=== PATIENT | female | born 1965 | race Two or more races ===

== ENCOUNTER 2024-03-09 01:06 | Inpatient (IN) | payer OTHER ==
[~2024-03-09] VITALS: Ht 157.5 cm; Wt 73.2 kg
[2024-03-09] VITALS (13 sets, daily range): BP systolic 101–119; BP diastolic 59–79; PULSE 52–90; RESP 12–18; TEMP 97.9–98.8; O2SAT 93–100
--- NOTE | 2024-03-09 01:27 | ED.PDOC ---
History of Present Illness HPI Comments 58-year-old female with PMHx DM, HTN brought in by EMS presents with a chief complaint of chest pain, nausea, and vomiting. Patient states that she was sleeping when she got woken up by sharp, left sided chest pain. Patient mentions that the pain is localized to her left chest wall, radiates up her neck and down her left arm. Patient reports that she became nauseous and had a vomiting episode. Patient does mention that she was diaphoretic, however, patient is not diaphoretic on arrival. Patient was given 325mg ASA by EMS. EKG showed acute STEMI which was then sent to on-call STEMI provider, Dr. Vera, whom states that it is not a STEMI. Chief Complaint: Chest Pain Time Seen by MD: :17 Reviewed Notes: Medications, Allergies Information Source: Patient Mode of Arrival: EMS Severity: Moderate Timing: Minutes Duration: Since onset Prehospital treatment: ASA Past Medical History PAST MEDICAL HISTORY: DM, HTN Surgical History: Denies all surgeries ONCOLOGY PHYSICIAN ASSISTANT History: Denies all ONCOLOGY PHYSICIAN ASSISTANT Hx Family History Family History: Reviewed,noncontributory to illness Social History Smoker: Non-Smoker Alcohol: Denies ETOH Use Drugs: Denies Drug Use Lives In: Home Constitutional: denies: chills, diaphoresis, fatigue, fever, malaise, sweats, weakness, others EENTM: denies: blurred vision, double vision, ear bleeding, ear discharge, ear drainage, ear pain, ear ringing, eye pain, eye redness, hearing loss, mouth pain, mouth swelling, nasal discharge, nose bleeding, nose congestion, nose pain, photophobia, tearing, throat pain, throat swelling, voice changes, others Respiratory: denies: cough, hemoptysis, orthopnea, SOB at rest, shortness of breath, SOB with excertion, stridor, wheezing, others Cardiovascular: reports: chest pain; denies: dizzy spells, diaphoresis, Dyspnea on exertion, edema, irregular heart beat, left arm pain, lightheadedness, palpitations, PND, syncope, others Gastrointestinal: reports: nausea, vomiting; denies: abdomen distended, abdominal pain, blood streaked bowels, constipated, diarrhea, dysphagia, diffi culty swallowing, hematemesis, melena, poor appetite, poor fluid intake, rectal bleeding, rectal pain, others Genitourinary: denies: abnormal vagina bleeding, burning, dyspareunia, dysuria, flank pain, frequency, hematuria, incontinence, pain, , vagina discharge, urgency, others Neurological: denies: dizziness, fainting, headache, left sided numbness, left sided weakness, numbness, paresthesia, pre-existing deficit, right sided numbness, right sided weakness, seizure, speech problems, tingling, tremors, weakness, others Musculoskeletal: denies: back pain, gout, joint pain, joint swelling, muscle pain, muscle stiffness, neck pain, others Integumetry: denies: bruises, change in color, change in hair/nails, dryness, laceration, lesions, lumps, rash, wounds, others Allergic/Immunocompromised: denies: Difficulty Healing, Frequent Infections, Hives, Itching, others Hematologic/Lymphatic: denies: anemia, blood clots, easy bleeding, easy bruising, swollen glands, others Endocrine: denies: excessive hunger, excessive sweating, excessive thirst, excessive urination, flushing, intolerance to cold, intolerance to heat, unexplained weight gain, unexplained weight loss, others Psychiatric: denies: anxiety, bipolar disorder, depression, hopeless, panic disorder, schizophrenia, sleepless, suicidal, others All Other Systems: Reviewed and Negative Physical Exam General Appearance: No Apparent Distress, Normal HEENT: Normal ENT Inspection, Pharynx Normal, TMs Normal Neck: Full Range of Motion, Non-Tender, Normal, Normal Inspection Respiratory: Chest Non-Tender, Lungs Clear, No Accessory Muscle Use, No Resp iratory Distress, Normal Breath Sounds Cardiovascular: No Edema, No JVD, No Murmur, No Gallop, Normal Peripheral Pulses, Regular Rate/Rhythm Breast Exam: Deferred Gastrointestinal: No Organomegaly, Non Tender, No Pulsatile Mass, Normal Bowel Sounds, Soft Genitalia: Deferred Pelvic: Deferred Rectal: Deferred Extremities: No calf tenderness, Normal capillary refill, Normal inspection, Normal range of motion, Non-tender, No pedal edema Musculoskeletal : Apperance: Normal Neurologic: Alert, senior hardware design engineer II-XII nml as Tested, No Motor Deficits, Normal Affect, Normal Mood, No Sensory Deficits Cerebellar Function: Normal Reflexes: Normal Skin: Dry, Normal Color, Warm Lymphatic: No Adenopathy Was a procedure done? Was a procedure done?: No Differential Dx Considerations may include: ACS, NSTEMI, pneumonia, viral syndrome X-Ray, Labs, Meds, VS Vital Signs Date Time Temp Pulse Resp B/P (MAP) Pulse Ox O2 Delivery O2 Flow Rate FiO2 03/09/24 02:51 57 10 123/79 03/09/24 02:19 55 03/09/24 01:17 54 03/09/24 01:08 97.7 54 18 160/78 (105) 96 03/09/24 01:08 53 Lab Test 03/09/24 02:22 03/09/24 01:30 Range/Units Troponin I High Sensitivity 168 *H 168 *H </=34 ng/L White Blood Count 15.5 H 4.4-10.8 10^3/uL Red Blood Count 4.18 4.0-5.20 10^6/uL Hemoglobin 12.1 L 12.2-16.2 g/dL Hematocrit 37.1 36.0-46.0 % Mean Corpuscular Volume 88.9 80.0-100.0 fL Mean Corpuscular Hemoglobin 29.0 28.0-32.0 pg Mean Corpuscular Hemoglobin Concent 32.6 32.0-36.0 g/dL Red Cell Distribution Width 14.8 H 11.8-14.3 % Platelet Count 264 140-450 10^3/uL Mean Platelet Volume 8.5 6.9-10.8 fL Neutrophils (%) (Auto) 78.0 37.0-80.0 % Lymphocytes (%) (Auto) 16.0 10.0-50.0 % Monocytes (%) (Auto) 4.6 0.0-12.0 % Eosinophils (%) (Auto) 1.0 0.0-7.0 % Basophils (%) (Auto) 0.4 0.0-2.0 % Neutrophils # (Auto) 12.1 H 1.6-8.6 10 ^3/uL Lymphocytes # (Auto) 2.5 0.4-5.4 10 ^3/uL Monocytes # (Auto) 0.7 0-1.3 10 ^3/uL Eosinophils # (Auto) 0.2 0-0.8 10 ^3/uL Basophils # (Auto) 0.1 0-0.2 10 ^3/uL Nucleated Red Blood Cells 0.1 % Sodium Level 140 136-145 mmol/L Potassium Level 4.0 3.5-5.1 mmol/L Chloride Level 104 98-107 mmol/L Carbon Dioxide Level 27 20-31 mmol/L Anion Gap 9 5-15 Blood Urea Nitrogen 21 9-23 mg/dL Creatinine 1.25 H 0.550-1.02 mg/dL Glomerular Filtration Rate Calc 50 >90 mL/min BUN/Creatinine Ratio 16.8 10.0-20.0 Serum Glucose 231 H 74-106 mg/dL Calcium Level 10.5 H 8.7-10.4 mg/dL B-Type Natriuretic Peptide 10.40 0-100 pg/mL Current Medications Medications (Trade) Dose Ordered Sig/Betty Route Start Time Stop Time Status Last Admin Ondansetron HCl (Zofran) 4 mg ONCE ONCE IV 03/09/24 02:45 03/09/24 02:46 DC 03/09/24 02:51 Morphine Sulfate 4 mg ONCE ONCE IV 03/09/24 02:45 03/09/24 02:46 DC 03/09/24 02:51 Time of 1ST Reevaluation: 01:47 Reevaluation 1ST: Unchanged Patient Education/Counseling: Diagnosis, Treatment, Prognosis Family Education/Counseling: No Family Present Departure 1 Departure Time of Disposition: 03:38 ([place] Authorization [id number] to admit here. Patient presented with chest pain that was concerning for possible STEMI, ACS, PE, Pneumonia, Muscle Strain, COPD, Dissection. Data: 1. I ordered and reviewed the result of at least 3 labs including a CBC, BMP, and Troponin. 2. I independently interpreted the following tests: EKG which shows mild elevations in 2 and 3 and Chest X-ray which shows benign chest.Risk:This patient has a high risk of morbidity due to further diagnostic testing or treatment and may suffer from an acute cardiac or respiratory disorder. Workup reveals concern for NSTEMI and patient should be admitted for further workup and possible expert consultation. ) Impression: Primary Impression: NSTEMI (non-ST elevated myocardial infarction) Additional Impression: Acute chest pain Disposition: 09 ADMITTED INPATIENT Admit to: Tele Condition: Serious Critical Care Note Critical Care Time?: Yes Critical care comment: Acute chest pain Authorized and Performed by: Jose Armando Jones MD Total critical care time: Approximately 36 minutes Due to a high probability of clinically significant, life threatening deterioration, the patient required my highest level of preparedness to intervene emergently and I personally spent this critical care time directly and personally managing the patient. This critical care time included obtaining a history; examining the patient; pulse oximetry; ordering and review of studies; arranging urgent treatment with development of a management plan; evaluation of patient's response to treatment; frequent reassessment; and, discussions with other providers. This critical care time was performed to assess and manage the high probability of imminent, life-threatening deterioration that could result in multi-organ failure. It was exclusive of separately billable procedures and treating other patients and teaching time. Please see my other sections and the rest of the note for further information on patient assessment and treatment. Stability Stability form required: No Heart Score Heart Score: Heart Score Response (Comments) Value History Moderate Suspicious 1 EKG Repolarization Disturb 1 Age 45-64 1 Risk Factors >3 or Hx ASHD 2 Troponin >3 x's Normal limit 2 Total 7 I personally scribed for JOSE ARMANDO JONES MD ([email or web address]) on 03/09/24 at 01:27. Electronically submitted by Juice Bernard ([email or web address]). JOSE ARMANDO JONES MD Mar 09, 2024 01:27
[2024-03-09 01:55] LABS: Basophils # (auto) 0.1 10 ^3/uL (0-0.2); Basophils % (auto) 0.4 % (0.0-2.0); Eosinophils # (auto) 0.2 10 ^3/uL (0-0.8); Hematocrit 37.1 % (36.0-46.0); Hemoglobin 12.1 g/dL (12.2-16.2); Lymphocytes # (auto) 2.5 10 ^3/uL (0.4-5.4); Mean Corpuscular Hgb Conc. 32.6 g/dL (32.0-36.0); Mean Corpuscular Volume 88.9 fL (80.0-100.0); Monocytes # (auto) 0.7 10 ^3/uL (0-1.3); Monocytes % (auto) 4.6 % (0.0-12.0); Neutrophils # (auto) 12.1 10 ^3/uL (1.6-8.6); Nucleated Red Blood Cells % 0.1 %; Platelet Count (auto) 264 10^3/uL (140-450); Red Blood Cells 4.18 10^6/uL (4.0-5.20); Red Cell Distribution Width 14.8 % (11.8-14.3); White Blood Cell 15.5 10^3/uL (4.4-10.8)
--- NOTE | 2024-03-09 02:39 | ECG ---
[facility] Test Date: 2024-03-09 Test Time: 01:17:03 Pat Name: ANTWON ZUNIGA Department: ED Room: Gender: F Director Of Strategic Initiatives: KENNEDI : 1965 Requested By: JOSE ARMANDO CARDONA Order Number: [id number] Reading MD: Measurements Intervals [place] Rate: 54 P: 55 MO: 126 QRS: 29 QRSD: 87 T: 88 QT: 427 QTc: 405 Interpretive Statements Sinus rhythm Inferior infarct, acute (RCA) Probable RV involvement, suggest recording right precordial leads Baseline wander in lead(s) V5 Please click the below link to view image of tracing.
--- NOTE | 2024-03-09 02:39 | ECG ---
[facility] Test Date: 2024-03-09 Test Time: 01:08:51 Pat Name: ANTWON ZUNIGA Department: ED Room: Gender: F Talent Acquisition Operations Manager: raisa : 1965 Requested By: JOSE ARMANDO CARDONA Order Number: [id number] Reading MD: Measurements Intervals [place] Rate: 53 P: 53 NE: 124 QRS: 30 QRSD: 90 T: 85 QT: 434 QTc: 408 Interpretive Statements Sinus rhythm Inferior infarct, acute (RCA) Probable RV involvement, suggest recording right precordial leads Please click the below link to view image of tracing.
--- NOTE | 2024-03-09 02:39 | ECG ---
[facility] Test Date: 2024-03-09 Test Time: 02:19:57 Pat Name: ANTWON ZUNIGA Department: ED Room: Gender: F Clay Modeler: KENNEDI : 1965 Requested By: JOSE ARMANDO CARDONA Order Number: [id number] Reading MD: Measurements Intervals [place] Rate: 55 P: 53 SC: 127 QRS: 44 QRSD: 88 T: 94 QT: 427 QTc: 409 Interpretive Statements Sinus rhythm Inferior infarct, acute (RCA) Minimal ST elevation, anterior leads Lateral leads are also involved Probable RV involvement, suggest recording right precordial leads Baseline wander in lead(s) V6 Please click the below link to view image of tracing.
[2024-03-09 02:43] LABS: Chloride 104 mmol/L (98-107); Sodium 140 mmol/L (136-145)
[2024-03-09 02:44] LABS: Anion Gap 9 (5-15); Carbon Dioxide 27 mmol/L (20-31)
[2024-03-09] MEDS: ONDANSETRON HCL 4 MG/2 ML VIAL IV ONE (02:51)
[2024-03-09] MEDS: MORPHINE SULFATE 4 MG/ML SYR/VIAL IV ONE (02:51)
--- NOTE | 2024-03-09 02:54 | DVH ---
Examination: CXRP Clinical Indication: chest pain Comparison: None. Technique: Frontal radiograph of the chest was obtained. Findings: Lungs are clear and well expanded, with no pulmonary infiltrate or pleural effusion. There is no pneumothorax. The cardiomediastinal silhouette is within normal limits. No acute osseous abnormality is seen. Impression: No acute cardiopulmonary disease is seen. Electronically Signed 03/09/2024 02:53 Juan Rojo
[2024-03-09 02:59] LABS: Calcium 10.5 mg/dL (8.7-10.4); Glucose 231 mg/dL (74-106)
[2024-03-09 03:19] LABS: BUN/Creatinine Ratio 16.8 (10.0-20.0); Blood Urea Nitrogen 21 mg/dL (9-23)
[2024-03-09] MEDS ORDERED: DEXTROSE (50%) 50ML SYRG IV PRN (04:15)
[2024-03-09] MEDS ORDERED: NITROGLYCERIN 0.4 MG SL TAB SL PRN (04:15)
--- NOTE | 2024-03-09 04:32 | DVHHP2 ---
History of Present Illness Reason for Visit: Chest pain History of Present Illness 58-year-old female presents for evaluation of chest pain. Patient reports being awakened with a left-sided sharp chest pain. She states the pain radiates to her neck down her left arm. Patient reports nausea with an episode of emesis. Denies any other acute complaints at the moment. Past Medical History Hypertension, diabetes mellitus Past Surgical History Denies Family History Noncontributory Smoke: No ALCOHOL: none Drugs: None Lives: with Family Review of Systems Review of Systems Review of systems are currently negative otherwise addressed in HPI. Medications Current Medications Medications Dose Ordered Sig/Betty Route Start Time Stop Time Status Last Admin Dose Admin Heparin Sodium/ Dextrose 250 ml @ 7.908 mls/ hr Q24H IV 03/09/24 03:45 UNV Atorvastatin Calcium 20 mg HS PO 03/09/24 22:00 UNV Lisinopril 20 mg DAILY PO 03/09/24 10:00 UNV Hydrochlorothiazide 25 mg DAILY PO 03/09/24 10:00 UNV Sertraline HCl 50 mg DAILY PO 03/09/24 10:00 UNV Aspirin 162 mg DAILY PO 03/09/24 10:00 UNV Atorvastatin Calcium 10 mg HS PO 03/09/24 22:00 UNV Ondansetron HCl 4 mg Q4HP PRN IV 03/09/24 04:15 UNV Nitroglycerin 0.4 mg Q5MINP PRN SL 03/09/24 04:15 UNV Morphine Sulfate 2 mg Q30M PRN IV 03/09/24 04:15 UNV Diagnostic Test (Pha) 1 strip Q6HR 03/09/24 06:00 UNV Insulin Human Regular Q6HR SC 03/09/24 06:00 UNV Dextrose 50 ml UD PRN IV 03/09/24 04:15 UNV Exam Vital Signs Vital Signs Date Time Temp Pulse Resp B/P (MAP) Pulse Ox O2 Delivery O2 Flow Rate FiO2 03/09/24 04:13 60 03/09/24 04:00 11 141/76 (97) 96 03/09/24 01:40 98.0 98.0 03/09/24 01:35 Room Air* 0 21 Exam Gen: 58-year-old female in mild distress Skin: Warm, dry, normal color and texture, no rash. HEENT: Normocephalic atraumatic, mucous membranes moist and pink. Neck: Cervical and supraclavicular nodes normal without enlargement, trachea is midline, thyroid gland is normal without masses. Pulmonary: Clear to auscultation and percussion bilaterally. Cardiac: Regular rate and rhythm. No murmur Abdomen: Soft, nontender, nondistended, bowel sounds present all 4 quadrants, no guarding, no rigidity, no organomegaly. Extremities: No cyanosis, clubbing, no edema Neuro: Cranial nerves II through XII grossly intact, normal affect and speech, no focal motor deficits. Labs/Xrays ORDERING PHYSICIAN: JOSE ARMANDO CARDONA MD PROCEDURE(s): CXRP - CHEST PORTABLE REASON: chest pain ORDER NUMBER(s): [id number], ACCESSION NUMBER(s): [id number] Examination: CXRP Clinical Indication: chest pain Comparison: None. Technique: Frontal radiograph of the chest was obtained. Findings: Lungs are clear and well expanded, with no pulmonary infiltrate or pleural effusion. There is no pneumothorax. The cardiomediastinal silhouette is within normal limits. No acute osseous abnormality is seen. Impression: No acute cardiopulmonary disease is seen. Electronically Signed 03/09/2024 02:53 Juan Rojo ATED BY: MARIANELA ARAUZ MD DICTATED DATE/TIME: 03/09/24 0253 Labs Test 03/09/24 04:01 03/09/24 01:30 Range/Units Eosinophils (%) (Auto) 1.0 0.0-7.0 % Eosinophils # (Auto) 0.2 0-0.8 10 ^3/uL Basophils # (Auto) 0.1 0-0.2 10 ^3/uL Nucleated Red Blood Cells 0.1 % Sodium Level 140 136-145 mmol/L Potassium Level 4.0 3.5-5.1 mmol/L Chloride Level 104 98-107 mmol/L Carbon Dioxide Level 27 20-31 mmol/L Anion Gap 9 5-15 Blood Urea Nitrogen 21 9-23 mg/dL Creatinine 1.25 H 0.550-1.02 mg/dL Glomerular Filtration Rate Calc 50 >90 mL/min BUN/Creatinine Ratio 16.8 10.0-20.0 Serum Glucose 231 H 74-106 mg/dL Calcium Level 10.5 H 8.7-10.4 mg/dL B-Type Natriuretic Peptide 10.40 0-100 pg/mL Assessment/Plan Assessment/Plan Assessment NSTEMI Hypertension Diabetes mellitus Plan Admit the patient to telemetry to the hospitalist Continue heparin drip per ER provider ACS protocol Resume home medications Continue treatment per orders. Plan discussed with: Patient My Orders Orders - SALVADOR,MANUEL AGACNJosafat Procedure Category Date Status Time * Cardiology Consult CONS 03/09/24 Transmitted 04:04 Atorvastatin (Lipitor) [facility] 03/09/24 Logged 22:[address] [facility] 03/09/24 Logged (Zestril Tablet) 10:[address] [facility] 03/09/24 Logged Tablet (Hydrochlorot 10:[address] [facility] 03/09/24 Logged (Zoloft) 10:[address] [facility] 03/09/24 Logged 10:00 Atorvastatin (Lipitor) [facility] 03/09/24 Logged 22:00 Basic Metabolic Panel LAB 03/10/24 Verified 04:00 Admit ADMIT 03/09/24 Transmitted 04:[address] [facility] 03/09/24 Logged (Zofran) 04:15 Npo (Nothing By DIET 03/09/24 Transmitted Mouth) Diet Breakfast Echo 2d Mode Cardiac US 03/09/24 Logged DOP 04:04 Condition: Fair [facility] 03/09/24 In Process 04:04 Bedrest With Bathroom [facility] 03/09/24 In Process Privileg 04:[address] [facility] 03/09/24 Logged Sublingual (Ntrostat 04:[address] [facility] 03/09/24 Logged Injection 04:15 Notify Of Changes [facility] 03/09/24 In Process From Base 04:04 Art Sales Consultant For [facility] 03/09/24 In Process 24 Hours 04:04 Emergency Dysrhythmia [facility] 03/09/24 In Process Protocol 04:04 Rhythm Strips Once [facility] 03/09/24 In Process Every Shift 04:04 Oxygen By Nasal RT 03/09/24 Transmitted Cannula 04:[address] [facility] 03/09/24 Logged (Accu-Chek Comfort 06:00 Insulin R (Human) [facility] 03/09/24 Logged (Insulin R) 06:00 Dextrose 50% Syringe [facility] 03/09/24 Logged 04:15 Date of Service: Mar 09, 2024 Billing Provider: JOAN SALVADOR Common Visit Codes: [id number] INP/OBS CARE (HIGH) OJAN SALVADOR Mar 09, 2024 04:32
[2024-03-09 04:35] LABS: Basophils # (auto) 0 10 ^3/uL (0-0.2); Basophils % (auto) 0.2 % (0.0-2.0); Eosinophils # (auto) 0 10 ^3/uL (0-0.8); Eosinophils % (auto) 0.3 % (0.0-7.0); Hematocrit 36.9 % (36.0-46.0); Lymphocytes # (auto) 1.3 10 ^3/uL (0.4-5.4); Lymphocytes % (auto) 11.1 % (10.0-50.0); Mean Corpuscular Hemoglobin 28.9 pg (28.0-32.0); Mean Corpuscular Hgb Conc. 32.6 g/dL (32.0-36.0); Mean Corpuscular Volume 88.6 fL (80.0-100.0); Monocytes # (auto) 0.3 10 ^3/uL (0-1.3); Monocytes % (auto) 2.3 % (0.0-12.0); Neutrophils # (auto) 10.4 10 ^3/uL (1.6-8.6); Neutrophils % (auto) 86.1 % (37.0-80.0); Platelet Count (auto) 231 10^3/uL (140-450); Red Blood Cells 4.16 10^6/uL (4.0-5.20); Red Cell Distribution Width 15.1 % (11.8-14.3); White Blood Cell 12.1 10^3/uL (4.4-10.8)
[2024-03-09 04:50] LABS: Partial Thromboplastin Time 24.5 SEC (24.5-34.5); Prothrombin Time 10.6 sec (9.3-11.8)
[2024-03-09] MEDS: HEPARIN DRIP/D5W 100UNITS/ML 250 ML IV SCH (05:49)
[2024-03-09] MEDS: HEPARIN SODIUM (PORCINE) 5000 UNITS/ML 1ML VIAL IV ONE ×2 (05:50→06:06)
--- NOTE | 2024-03-09 05:57 | DVHINCON2 ---
Date of service: Mar 09, 2024 History of Present Illness 58 yo F with DM , HTN admitted for chest pain and nstemi. initial ecg showed subtle st changes inferiorly. plt has no hx of cad or chf. chest pain improved since coming in. for 1 week, " i felt bad". pt at bedside wit family. Past Medical History reviewed Allergies: Coded Allergies: NO KNOWN ALLERGIES (Unverified , 03/09/24) Current Medications Current Medications Medications (Trade) Dose Ordered Sig/Betty Route PRN Reason Start Time Stop Time Status Last Admin Heparin Sodium/ Dextrose 250 ml @ 8 mls/hr Q24H IV 03/09/24 03:45 Atorvastatin Calcium (Lipitor) 20 mg HS PO 03/09/24 22:00 Lisinopril (Zestril Tablet) 20 mg DAILY PO 03/09/24 10:00 Hydrochlorothiazide (hydroCHLOROthiazide TABLET) 25 mg DAILY PO 03/09/24 10:00 Sertraline HCl (Zoloft) 50 mg DAILY PO 03/09/24 10:00 Aspirin 162 mg DAILY PO 03/09/24 10:00 Atorvastatin Calcium (Lipitor) 10 mg HS PO 03/09/24 22:00 03/09/24 05:05 DC Ondansetron HCl (Zofran) 4 mg Q4HP PRN IV NAUSEA / VOMITING 03/09/24 04:15 Nitroglycerin (Ntrostat Sublingual) 0.4 mg Q5MINP PRN SL FOR CHEST PAIN 03/09/24 04:15 Morphine Sulfate 2 mg Q30M PRN IV FOR CHEST PAIN 03/09/24 04:15 Diagnostic Test (Pha) (Accu-Chek Comfort Curve T) 1 strip Q6HR 03/09/24 06:00 Insulin Human Regular (InsuLIN R) Q6HR SC 03/09/24 06:00 Dextrose 50 ml UD PRN IV Blood Sugar LESS THAN 60 03/09/24 04:15 Review of Systems 10 pt ros otherwise negative Vital Signs Vital Signs Date Time Temp Pulse Resp B/P (MAP) Pulse Ox O2 Delivery O2 Flow Rate FiO2 03/09/24 04:13 60 03/09/24 04:00 11 141/76 (97) 96 03/09/24 01:40 98.0 98.0 03/09/24 01:35 Room Air* 0 21 Physical Exam mild distress s1 s2 rrr ctab soft nt/nd no edema Labs/Diagnostic Data Labs Test 03/09/24 04:01 03/09/24 01:30 Range/Units White Blood Count 12.1 H 4.4-10.8 10^3/uL Red Blood Count 4.16 4.0-5.20 10^6/uL Hemoglobin 12.0 L 12.2-16.2 g/dL Hematocrit 36.9 36.0-46.0 % Mean Corpuscular Volume 88.6 80.0-100.0 fL Mean Corpuscular Hemoglobin 28.9 28.0-32.0 pg Mean Corpuscular Hemoglobin Concent 32.6 32.0-36.0 g/dL Red Cell Distribution Width 15.1 H 11.8-14.3 % Platelet Count 231 140-450 10^3/uL Mean Platelet Volume 8.3 6.9-10.8 fL Neutrophils (%) (Auto) 86.1 H 37.0-80.0 % Lymphocytes (%) (Auto) 11.1 10.0-50.0 % Monocytes (%) (Auto) 2.3 0.0-12.0 % Eosinophils (%) (Auto) 0.3 0.0-7.0 % Basophils (%) (Auto) 0.2 0.0-2.0 % Neutrophils # (Auto) 10.4 H 1.6-8.6 10 ^3/uL Lymphocytes # (Auto) 1.3 0.4-5.4 10 ^3/uL Monocytes # (Auto) 0.3 0-1.3 10 ^3/uL Eosinophils # (Auto) 0 0-0.8 10 ^3/uL Basophils # (Auto) 0 0-0.2 10 ^3/uL Nucleated Red Blood Cells 0.0 % Prothrombin Time 10.6 9.3-11.8 sec Prothrombin Time INR 1.00 0.9-1.15 Activated Partial Thromboplast Time 24.5 24.5-34.5 SEC Troponin I High Sensitivity 196 *H </=34 ng/L Sodium Level 140 136-145 mmol/L Potassium Level 4.0 3.5-5.1 mmol/L Chloride Level 104 98-107 mmol/L Carbon Dioxide Level 27 20-31 mmol/L Anion Gap 9 5-15 Blood Urea Nitrogen 21 9-23 mg/dL Creatinine 1.25 H 0.550-1.02 mg/dL Glomerular Filtration Rate Calc 50 >90 mL/min BUN/Creatinine Ratio 16.8 10.0-20.0 Serum Glucose 231 H 74-106 mg/dL Calcium Level 10.5 H 8.7-10.4 mg/dL B-Type Natriuretic Peptide 10.40 0-100 pg/mL Assessment nstemi htn hl DM Plan/Recommendation recommend LHC after informed consent pt agrees to plan evolving ecg pattern and recommend echo and heparin bolus troponin mildy elevated asa statin further recs to follow 40 mins critical care time spent Plan discussed with: Patient LOCO VALENCIA MD Mar 09, 2024 05:57
[2024-03-09] MEDS: InsuLIN REG 1unit/0.01ml Soln (100units/ml) SC SCH (06:00)
[2024-03-09] MEDS: ACCU-CHEK COMFORT CURVE STRIP VI SCH (06:13)
--- NOTE | 2024-03-09 06:52 | ECG ---
[facility] Test Date: 2024-03-09 Test Time: 04:13:46 Pat Name: ANTWON ZUNIGA Department: ED Room: [address] [place] [address] Gender: F Flyer Builder: KENNEDI : 1965 Requested By: JOSE ARMANDO CARDONA Order Number: [id number] Reading MD: Measurements Intervals [place] Rate: 60 P: 39 [place]: 127 QRS: 42 QRSD: 87 T: 95 QT: 409 QTc: 409 Interpretive Statements Sinus rhythm Inferior infarct, acute (RCA) Lateral leads are also involved Probable RV involvement, suggest recording right precordial leads Please click the below link to view image of tracing.
[2024-03-09] MEDS: ONDANSETRON HCL 4 MG/2 ML VIAL IV PRN (07:53)
[2024-03-09] MEDS: MORPHINE SULFATE INJ 2 MG/ml SYRG IV PRN (07:54)
[2024-03-09] MEDS: SERTRALINE HCL 50 MG TAB PO SCH (10:15)
[2024-03-09] MEDS: LISINOPRIL 20 MG TAB PO SCH (10:15)
[2024-03-09] MEDS: hydroCHLOROthiazide 25 MG TAB PO SCH (10:15)
[2024-03-09] MEDS: ASPirin 81 mg TAB PO SCH (10:16)
--- NOTE | 2024-03-09 10:22 | DVHSR ---
APPROVED REPORT EXAM: Two-dimensional and M-mode echocardiogram with Doppler and color Doppler. Blood Pressure: 139/78 mmHg INDICATION Chest Pain RISK FACTORS Height: 62, Weight: 145 DIMENSIONS LVDd4.7 (3.8-5.7cm)LA (2D)4.1 (1.9-4.0cm)Aortic Root3.0 (2.0-3.7cm) LVDs3.1 (2.5-4.0cm)LA (MM) (1.9-4.0cm)Aortic Cusp Exc1.6 (1.5-2.0cm) EF (%) 63.0 (55-70%)Rt. Atrium3.7 (1.9-4.0cm)Asc. Aorta cm IVSd1.3 (0.7-1.1cm)RV (D) (1.8-2.4cm) PWd1.2 (0.7-1.1cm) Mitral Valve MitralMitral Stenosis E wave0.89m/sMV Mean GR.2mmHg A wave0.93m/sMV Peak GR.141mmHg E/A ratio1.02D MVAcm2 DECEL [id number] 1/2 [id number] IVRTmsDop MVA2.09cm2 Aortic Valve Aortic ValveAortic Stenosis V10.90m/Evan Mean GR.5mmHg V21.57m/Evan Peak GR.10mmHg LVOT Diameter2.0 (1.8-2.4cm)Doppler AVA1.80cm2 Pulmonic Valve V20.73m/s Tricuspid Valve TR Velocity2.54m/s [id number] Conclusion lvef 60% by visual estimate normal rv function moderate mitral regurg left atrium enlarged
[2024-03-09] MEDS: fentaNYL CITRATE 100 MCG/2 ML VL ONE (11:37)
[2024-03-09] MEDS: ANGIOMAX 250 MG VIAL IV ONE (11:37)
[2024-03-09] MEDS: LIDOCAINE 2%HCL (LOCAL ANESTH.) INJ 20ML MDV ONE (11:37)
[2024-03-09] MEDS: VERAPAMIL 2.5MG/ML INJ 2ML VIAL IV ONE (11:37)
[2024-03-09] MEDS: HEPARIN SODIUM (PORCINE) 5000 UNITS/ML 1ML VIAL ONE (11:37)
[2024-03-09] MEDS: MIDAZOLAM HCL 2MG/2ML 2ml VIAL (1mg/ml) ONE (11:37)
[2024-03-09] MEDS: SODIUM CHL 0.9% 50 ML ONE (11:37)
--- NOTE | 2024-03-09 11:46 | DVHPN2 ---
Progress Note Date Seen: Mar 09, 2024 Medical Necessity Reason Pt with a Central, PICC or Fol: No Subjective Patient reports: No new complaints Review of Systems: HEENT:Normal, CVS:Normal, RESPIRATORY:Normal, GI:Normal, :Normal, MSK:Normal, NEURO:Normal Objective vital signs Vital Sign Date Time Temp Pulse Resp B/P (MAP) Pulse Ox O2 Delivery O2 Flow Rate FiO2 03/09/24 10:15 108/60 03/09/24 10:02 98.3 53 16 94 98.3 03/09/24 07:40 Room Air* 0 21 medications Current Medications Medications Dose Ordered Sig/Betty Route Start Time Stop Time Status Last Admin Dose Admin Heparin Sodium/ Dextrose 250 ml @ 8 mls/hr Q24H IV 03/09/24 03:45 Atorvastatin Calcium 20 mg HS PO 03/09/24 22:00 Lisinopril 20 mg DAILY PO 03/09/24 10:00 03/09/24 10:15 20 MG Hydrochlorothiazide 25 mg DAILY PO 03/09/24 10:00 03/09/24 10:15 25 MG Sertraline HCl 50 mg DAILY PO 03/09/24 10:00 03/09/24 10:15 50 MG Aspirin 162 mg DAILY PO 03/09/24 10:00 03/09/24 10:16 162 MG Ondansetron HCl 4 mg Q4HP PRN IV 03/09/24 04:15 03/09/24 07:53 4 MG Nitroglycerin 0.4 mg Q5MINP PRN SL 03/09/24 04:15 Morphine Sulfate 2 mg Q30M PRN IV 03/09/24 04:15 03/09/24 09:17 2 MG Diagnostic Test (Pha) 1 strip Q6HR 03/09/24 06:00 03/09/24 06:13 1 STRIP Insulin Human Regular Q6HR SC 03/09/24 06:00 Dextrose 50 ml UD PRN IV 03/09/24 04:15 Examination: GENERAL:Normal, HEENT:Normal, NECK:Normal, LUNGS:Normal, CVS:Normal, ABDOMEN:Normal, MSK:Normal, SKIN:Normal, NEURO:Normal, :Normal laboratory and microbiology Laboratory Tests 03/09/24 04:01 03/09/24 01:30 Test 03/09/24 01:30 Range/Units Serum Glucose 231 H 74-106 mg/dL Problem List/Assessment/Plan Problem List/Assessment/Plan #1 acute mi: c angio, heparin drip #2 dm: ssi #3 htn #4 depression #5 ?acute renal failure/vasomotor nephropathy- dc lisinopril, monitor Plan discussed with: Patient Critical Care Time (mins): 37 (critical care time 37 mins) Date of Service: Mar 09, 2024 Billing Provider: JOAN SILVA MD Common Visit Codes: [id number] CARE 30-74 MIN JOAN SILVA MD Mar 09, 2024 11:46
[2024-03-09] MEDS: PANTOPRAZOLE 40 MG/10 ML VIAL INJ IV ONE (12:15)
[2024-03-09] MEDS: ATROPINE SULF 1 MG/10ml SYR ONE (12:38)
[2024-03-09] MEDS: EPTIFIBATIDE INJ (2MG/ML) 10ML VIAL IV ONE ×2 (12:38→12:39)
[2024-03-09] MEDS: TICAGRELOR 90 MG TAB ONE (12:38)
--- NOTE | 2024-03-09 12:55 | DVHOP2 ---
Operative Report Operative Report CARDIAC SALES REPRESENTATIVE PRINTING PROCEDURE REPORT [place], [place] Date of Service: 03/09/24 Reading Specialist: Chris Valencia MD PROCEDURES PERFORMED: Coronary angiogram, left heart catheterization, conscious sedation administration and supervision, less than 15 minutes; fluoroscopy use and interpretation. conscious sedation 15-30 mins, ptca 1 vessel, pci 1 vessel, acute [place] intervention PREOPERATIVE DIAGNOSES: nstemi POSTOP DIAGNOSIS: nstemi DESCRIPTION OF PROCEDURE: The patient or appropriate family signed informed consent understanding the risks, benefits and alternatives of the procedure, they wished to proceed. The patient was brought to the cardiac solder making laborer in n.p.o. state. The patient was prepped in a sterile fashion. Sedation was used per cardiac cath protocol. I administered 2 mL of 2% lidocaine to the right wrist. With an antegrade front wall puncture. I cannulated the right radial artery and placed a 6-[place] slender. Next, an intra-arterial spasmolytic was administered. Next, a - 5 [place] catheter and XB 3.5 guide and were used for coronary angiogram and LVEDP measurement and pressure pullback. At the completion of procedure, all guides and wires were removed, and there were no immediate complications. FINDINGS: RCA: small non dominant vessel off the right sinus of Valsalva, there is no severe flow limiting stenosis. LEFT MAIN: Moderate size left main, it bifurcates into LAD and circumflex. no severe stenosis CIRCUMFLEX: Moderate caliber vessel coming off the left main. prox is patent. it gives off large OM1 that is stumped off with pernell 0 flow and very large thrombus burden. LAD: LAD is a moderate caliber vessel coming of the left main. no severe stenosis. microvascular disease and sluggish flow noted. INTERVENTION: We decided to proceed with coronary intervention. I started with a 6F ___xb 3.5_ Guide to intubate the _LM _. Angiomax bolus and gtt was started. Following this, I decided to wire using an .014 whispr across the culprit lesion with ease. At this time, we performed balloon angioplasty with a 3.0 x 13 mm balloon b__10 _ ATMS over __15__ seconds with _2__ number of inflations. Following this, I decided to place a stent using a ____3.5 x 18 mm GIL mm onyx____ stent inflated up to __18___ ATMS over 15 seconds with two separate inflations. Following this, the stent balloon removed and angio performed showing 0% residual stenosis. i gave intracoronary nitro 400 mcg (200 mcg 2 separate times over 10 mins and dose of IC integrilin given huge thrombus burden. PERNELL pre/post: 3./3 CONCLUSIONS: 1. sp pci to acutely occluded OM1 pernell 0 flow to PERNELL 3 with 1 GIL placed PLAN: Aggressive risk factor modification and medical management for the patient. DAPT x 1 year uninterrupted CHRIS VALENCIA MD Mar 09, 2024 12:55
[2024-03-09 15:11] LABS: INR 1.3 (0.9-1.15); Partial Thromboplastin Time 49.7 SEC (24.5-34.5); Prothrombin Time 13.5 sec (9.3-11.8)
[2024-03-09] MEDS: CLOPIDOGREL BISULFATE 75 MG TAB PO ONE (20:01)
[2024-03-09 20:37] LABS: Urine Bacteria None Seen /hpf (None Seen)
[2024-03-09] MEDS: ATORVASTATIN 20 MG TAB PO SCH (21:14)
[2024-03-09 21:33] LABS: Urine Blood TRACE /uL (Negative); Urine Clarity Clear (Clear); Urine Color Yellow (Yellow); Urine Mucus FEW (None Seen); Urine Protein, UAD 2+ (Negative); Urine Urobilinogen Normal (Negative); Urine WBC <1 /hpf (0 - 5)
[2024-03-09 21:39] LABS: Urine Specific Gravity > 1.050 (1.001-1.035)
[2024-03-09] MEDS ORDERED: ATORVASTATIN 20 MG TAB PO SCH (22:00)
[2024-03-10 01:00] VITALS: BP 104/63; PULSE 54; RESP 18; TEMP 98.4; O2SAT 98
[2024-03-10 05:00] VITALS: BP 112/53; PULSE 54; RESP 18; TEMP 98.2; O2SAT 99
[2024-03-10 06:33] LABS: Alanine Aminotransferase 37 U/L (7-40); Alkaline Phosphatase 87 U/L (46-116); Anion Gap 10 (5-15); BUN/Creatinine Ratio 16.4 (10.0-20.0); Basophils # (auto) 0 10 ^3/uL (0-0.2); Basophils % (auto) 0.3 % (0.0-2.0); Blood Urea Nitrogen 21 mg/dL (9-23); Calcium 10.2 mg/dL (8.7-10.4); Carbon Dioxide 27 mmol/L (20-31); Chloride 103 mmol/L (98-107); Eosinophils # (auto) 0 10 ^3/uL (0-0.8); Eosinophils % (auto) 0.3 % (0.0-7.0); Hematocrit 34.4 % (36.0-46.0); Hemoglobin 11.4 g/dL (12.2-16.2); LDL Cholesterol 86 mg/dL (< 100); Lymphocytes # (auto) 1.6 10 ^3/uL (0.4-5.4); Lymphocytes % (auto) 16.6 % (10.0-50.0); Mean Corpuscular Hemoglobin 29.2 pg (28.0-32.0); Mean Corpuscular Hgb Conc. 33.1 g/dL (32.0-36.0); Mean Corpuscular Volume 88.3 fL (80.0-100.0); Monocytes # (auto) 0.7 10 ^3/uL (0-1.3); Monocytes % (auto) 7.5 % (0.0-12.0); Neutrophils # (auto) 7.2 10 ^3/uL (1.6-8.6); Neutrophils % (auto) 75.3 % (37.0-80.0); Platelet Count (auto) 233 10^3/uL (140-450); Red Cell Distribution Width 14.5 % (11.8-14.3); Sodium 140 mmol/L (136-145); White Blood Cell 9.6 10^3/uL (4.4-10.8)
[2024-03-10 06:34] LABS: Bilirubin, Total 0.4 mg/dL (0.2-1.0); Cholesterol 165 mg/dL (< 200); HDL Cholesterol 46 mg/dL (40-59)
[2024-03-10 06:35] LABS: Aspartate Aminotransferase 300 U/L (13-40); Glucose 147 mg/dL (74-106); Triglycerides 169 mg/dL (< 150)
[2024-03-10 08:00] VITALS: PULSE 65; PULSE 74; RESP 18; O2SAT 96
[2024-03-10 08:46] VITALS: BP 113/71; PULSE 60; RESP 17; TEMP 98.3; O2SAT 98
[2024-03-10] MEDS: PANTOPRAZOLE 40 MG/10 ML VIAL INJ IV SCH (09:41)
[2024-03-10] MEDS: CLOPIDOGREL BISULFATE 75 MG TAB PO SCH (09:42)
--- NOTE | 2024-03-10 11:34 | DVHPN2 ---
Progress Note Date Seen: Mar 10, 2024 Medical Necessity Reason Pt with a Central, PICC or Fol: No Subjective Patient reports: No new complaints Review of Systems: HEENT:Normal, CVS:Normal, RESPIRATORY:Normal, GI:Normal, :Normal, MSK:Normal, NEURO:Normal Objective vital signs Vital Sign Date Time Temp Pulse Resp B/P (MAP) Pulse Ox O2 Delivery O2 Flow Rate FiO2 03/10/24 08:46 98.3 60 17 113/71 (85) 98 98.3 03/10/24 08:00 Room Air* 0 21 Total Intake and Output 03/09/24 03/09/24 03/10/24 15:00 23:00 07:00 Intake Total 250 ml 200 ml Balance 250 ml 200 ml medications Current Medications Medications Dose Ordered Sig/Betty Route Start Time Stop Time Status Last Admin Dose Admin Atorvastatin Calcium 20 mg HS PO 03/09/24 22:00 03/09/24 21:14 20 MG Sertraline HCl 50 mg DAILY PO 03/09/24 10:00 03/10/24 09:41 50 MG Aspirin 162 mg DAILY PO 03/09/24 10:00 03/10/24 09:42 162 MG Ondansetron HCl 4 mg Q4HP PRN IV 03/09/24 04:15 03/09/24 17:17 4 MG Nitroglycerin 0.4 mg Q5MINP PRN SL 03/09/24 04:15 Morphine Sulfate 2 mg Q30M PRN IV 03/09/24 04:15 03/09/24 09:17 2 MG Diagnostic Test (Pha) 1 strip Q6HR 03/09/24 06:00 03/10/24 05:21 1 STRIP Insulin Human Regular Q6HR SC 03/09/24 06:00 03/10/24 05:23 2 UNITS Dextrose 50 ml UD PRN IV 03/09/24 04:15 Pantoprazole Sodium 40 mg DAILY IV 03/10/24 10:00 03/10/24 09:41 40 MG Clopidogrel Bisulfate 75 mg DAILY PO 03/10/24 10:00 03/10/24 09:42 75 MG Examination: GENERAL:Normal, HEENT:Normal, NECK:Normal, LUNGS:Normal, CVS:Normal, ABDOMEN:Normal, MSK:Normal, SKIN:Normal, NEURO:Normal, :Normal laboratory and microbiology Laboratory Tests 03/10/24 05:56 Test 03/10/24 05:56 Range/Units Serum Glucose 147 H 74-106 mg/dL Problem List/Assessment/Plan Problem List/Assessment/Plan #1 acute mi: s/p stent, cont meds #2 dm: ssi #3 htn #4 depression #5 ckd stage 3 advance care planning- full code- time spent 19 mins Plan discussed with: Patient My Orders My Orders Orders - JOAN SILVA MD Procedure Category Date Status Time Pantoprazole PHA 03/10/24 In Process (Protonix) 10:00 Date of Service: Mar 10, 2024 Billing Provider: JOAN SILVA MD Common Visit Codes: [id number] INP/OBS CARE(HIGH) Secondary Visit Codes: [id number] CARE PLAN 30 MINUTES JOAN SILVA MD Mar 10, 2024 11:34
--- NOTE | 2024-03-10 12:10 | DVHDS2 ---
Discharge Summary Date of Admission Mar 09, 2024 at 04:09 Date of Discharge: Mar 10, 2024 Labs/Diagnostic Data: Laboratory Results Test 03/10/24 05:56 03/10/24 05:19 03/09/24 17:45 03/09/24 14:44 White Blood Count 9.6 10^3/uL (4.4-10.8) Red Blood Count 3.90 10^6/uL (4.0-5.20) Hemoglobin 11.4 g/dL (12.2-16.2) Hematocrit 34.4 % (36.0-46.0) Mean Corpuscular Volume 88.3 fL (80.0-100.0) Mean Corpuscular Hemoglobin 29.2 pg (28.0-32.0) Mean Corpuscular Hemoglobin Concent 33.1 g/dL (32.0-36.0) Red Cell Distribution Width 14.5 % (11.8-14.3) Platelet Count 233 10^3/uL (140-450) Mean Platelet Volume 8.3 fL (6.9-10.8) Neutrophils (%) (Auto) 75.3 % (37.0-80.0) Lymphocytes (%) (Auto) 16.6 % (10.0-50.0) Monocytes (%) (Auto) 7.5 % (0.0-12.0) Eosinophils (%) (Auto) 0.3 % (0.0-7.0) Basophils (%) (Auto) 0.3 % (0.0-2.0) Neutrophils # (Auto) 7.2 10 ^3/uL (1.6-8.6) Lymphocytes # (Auto) 1.6 10 ^3/uL (0.4-5.4) Monocytes # (Auto) 0.7 10 ^3/uL (0-1.3) Eosinophils # (Auto) 0 10 ^3/uL (0-0.8) Basophils # (Auto) 0 10 ^3/uL (0-0.2) Nucleated Red Blood Cells 0.0 % Sodium Level 140 mmol/L (136-145) Potassium Level 4.0 mmol/L (3.5-5.1) Chloride Level 103 mmol/L (98-107) Carbon Dioxide Level 27 mmol/L (20-31) Anion Gap 10 (5-15) Blood Urea Nitrogen 21 mg/dL (9-23) Creatinine 1.28 mg/dL (0.550-1.02) Glomerular Filtration Rate Calc 48 mL/min (>90) BUN/Creatinine Ratio 16.4 (10.0-20.0) Serum Glucose 147 mg/dL (74-106) Hemoglobin A1c 7.6 % A1C (<5.7) Calcium Level 10.2 mg/dL (8.7-10.4) Total Bilirubin 0.4 mg/dL (0.2-1.0) Aspartate Amino Transferase (AST) 300 U/L (13-40) Alanine Aminotransferase (ALT) 37 U/L (7-40) Alkaline Phosphatase 87 U/L (46-116) Total Protein 7.0 g/dL (5.7-8.2) Albumin 4.0 g/dL (3.2-4.8) Triglycerides Level 169 mg/dL (< 150) Cholesterol Level 165 mg/dL (< 200) LDL Cholesterol 86 mg/dL (< 100) HDL Cholesterol 46 mg/dL (40-59) POC Glucose 156 mg/dl (70-106) Urine Color Yellow (Yellow) Urine Clarity Clear (Clear) Urine pH 6.0 (5.0-9.0) Urine Specific [place] > 1.050 (1.001-1.035) Urine Protein 2+ (Negative) Urine Ketones Negative (Negative) Urine Blood Trace /uL (Negative) Urine Nitrite Negative (Negative) Urine Bilirubin Negative (Negative) Urine Urobilinogen Normal mg/dL (Negative) Urine Leukocyte Esterase Negative /uL (Negative) Urine RBC <1 /hpf (0 - 4) Urine WBC <1 /hpf (0 - 5) Urine Squamous Epithelial Cells Few /hpf (<5) Urine Bacteria None seen /hpf (None Seen) Urine Mucus Few (None Seen) Urine Glucose Normal mg/dL (Normal) Prothrombin Time 13.5 sec (9.3-11.8) Prothrombin Time INR 1.30 (0.9-1.15) Activated Partial Thromboplast Time 49.7 SEC (24.5-34.5) Test 03/09/24 04:01 03/09/24 01:30 Troponin I High Sensitivity 196 ng/L (</=34) B-Type Natriuretic Peptide 10.40 pg/mL (0-100) Other Laboratory Tests 03/10/24 05:56 Brief Hx & Hospital Course: see dictated note Condition at Discharge: Fair Final Diagnosis/Problems List cad Discharge Disposition: Home Discharge Instruct/Medications Diet: Consistent carbohydrate, Cardiac 2g Na,low cholest Activity: No Restrictions, As Tolerated Follow Up/Referral: fu with cardiology in 1 wk Medications: resume home meds script to pharmacy Discharge Statement: "Patient was advised to return to the ER or call 911 if any headaches, dizziness, shortness of breath, chest pain, abdominal pain, bleeding, fevers, or worsening of medical condition. Patient was counseled about treatment plan, medications, possible side effects, patientverbalized understanding. All questions were answered to the best of my ability. This discharge took greater then 30 minutes in planning, reviewing documentation, counseling the patient, and discussing with other team members." ASSESSMENT ASSESSMENT Assessment cad Date of Service: Mar 10, 2024 Billing Provider: JOAN SILVA MD Common Visit Codes: [id number]/OBS DISCH DAY >30min JOAN SILVA MD Mar 10, 2024 12:10
[2024-03-10] MEDS ORDERED: CLOP75TA28 PO (12:12)
[2024-03-10] MEDS ORDERED: ASPI-498 PO (12:12)
[2024-03-10] MEDS ORDERED: ATOR40TA52 PO (12:12)
--- NOTE | 2024-03-10 12:25 | DVHDS ---
DATE OF DISCHARGE: 03/10/2024 HISTORY OF PRESENT ILLNESS: The patient is a 58-year-old lady who was admitted with complaints of chest pain radiating down to her arm accompanied by nausea. She has history of hypertension, diabetes and chronic kidney disease. HOSPITAL COURSE: The patient was seen in cardiology consult by Dr. Vera. The patient's troponin levels were elevated. The patient underwent coronary angiography with stenting of the OM1. The patient now is chest pain free. The patient's lipid panel showed LDL of 86. The patient's creatinine was about 1.28. As per my discussion with Dr. Vera, the patient is stable to go home. She will be discharged to resume her home medications as well as to be on aspirin 81 mg daily, Plavix 75 mg daily, Lipitor 40 mg at bedtime. She will follow up with her employment appeals examiner in 1 week. FINAL DIAGNOSES: Therefore, * Acute myocardial infarction, status post stenting. * Diabetes mellitus. * Hypertension. * Depression. * Chronic kidney disease, stage III. * Systemic inflammatory response syndrome secondary to acute myocardial infarction. * Transaminitis. Time spent in discharge planning and review of plan with the patient, nursing and loans consultant was 38 minutes, MD DEENA Jones/ABHISHEK TID: [id number] RECEIPT: [id number]
[2024-03-10 12:48] VITALS: BP 127/60; PULSE 64; RESP 18; TEMP 98.1; O2SAT 99
[2024-03-10 12:51] VITALS: BP 127/60; PULSE 64; RESP 18; TEMP 98.1; O2SAT 99
--- NOTE | 2024-03-10 12:56 | DVHPN2 ---
Progress Note Date Seen: Mar 10, 2024 Medical Necessity Reason Pt with a Central, PICC or Fol: No Subjective Patient reports: Feels better Objective vital signs Vital Sign Date Time Temp Pulse Resp B/P (MAP) Pulse Ox O2 Delivery O2 Flow Rate FiO2 03/10/24 12:48 98.1 64 18 127/60 (82) 99 98.1 03/10/24 08:00 Room Air* 0 21 Total Intake and Output 03/09/24 03/09/24 03/10/24 15:00 23:00 07:00 Intake Total 250 ml 200 ml Balance 250 ml 200 ml medications Current Medications Medications Dose Ordered Sig/Betty Route Start Time Stop Time Status Last Admin Dose Admin Atorvastatin Calcium 20 mg HS PO 03/09/24 22:00 03/09/24 21:14 20 MG Sertraline HCl 50 mg DAILY PO 03/09/24 10:00 03/10/24 09:41 50 MG Aspirin 162 mg DAILY PO 03/09/24 10:00 03/10/24 09:42 162 MG Ondansetron HCl 4 mg Q4HP PRN IV 03/09/24 04:15 03/09/24 17:17 4 MG Nitroglycerin 0.4 mg Q5MINP PRN SL 03/09/24 04:15 Morphine Sulfate 2 mg Q30M PRN IV 03/09/24 04:15 03/09/24 09:17 2 MG Diagnostic Test (Pha) 1 strip Q6HR 03/09/24 06:00 03/10/24 12:24 1 STRIP Insulin Human Regular Q6HR SC 03/09/24 06:00 03/10/24 12:23 3 UNITS Dextrose 50 ml UD PRN IV 03/09/24 04:15 Clopidogrel Bisulfate 75 mg DAILY PO 03/10/24 10:00 03/10/24 09:42 75 MG Pantoprazole Sodium 40 mg DAILY@0600 PO 03/11/24 06:00 Examination: GENERAL:Abnormal, HEENT:Abnormal, LUNGS:Abnormal, CVS:Abnormal, ABDOMEN:Abnormal laboratory and microbiology Laboratory Tests 03/10/24 05:56 Test 03/10/24 05:56 Range/Units Serum Glucose 147 H 74-106 mg/dL Problem List/Assessment/Plan Problem List/Assessment/Plan nstemi htn hl DM cad s/p pci to OM doing well dc home on dapt statin cont BB fu [place] cards 1- 2 weeks Plan discussed with: Patient My Orders My Orders Orders - LOCO VALENCIA MD Procedure Category Date Status Time Post Cath Vital Signs JJ 03/09/24 In Process Q 15min Post Cath Activity JJ 03/09/24 In Process Protocol 13:29 Communication Order ORDERS 03/09/24 Transmitted 13:29 Consistent DIET 03/09/24 [facility]Diabetes L[facility] Date of Service: Mar 10, 2024 Billing Provider: LOCO VALENCIA MD Common Visit Codes: NOT BILLABLE LOCO VALENCIA MD Mar 10, 2024 12:56
[2024-03-11] MEDS ORDERED: PANTOPRAZOLE 40 MG TAB PO SCH (06:00)
== END 2024-03-10 14:34 | disposition home or self-care (01) | DRG 322 ==
LOC: EDBD 01:06 → ER 01:06 → TELE 04:09 → TELE-E-ADS 09:34
PROVIDERS: ADMIT Nurse Practitioner; ATTEND Internal Medicine
PROC: 4A023N7 Measurement of Cardiac Sampling and Pressure, Left Heart, Percutaneous Approach (ICD-10-PCS; principal; 2024-03-09)
PROC: 027034Z Dilation of Coronary Artery, One Artery with Drug-eluting Intraluminal Device, Percutaneous Approach (ICD-10-PCS; 2024-03-09)
PROC: B211YZZ Fluoroscopy of Multiple Coronary Arteries using Other Contrast (ICD-10-PCS; 2024-03-09)
DX: I21.4 Non-ST elevation (NSTEMI) myocardial infarction (principal); R65.10 Systemic inflammatory response syndrome (SIRS) of non-infectious origin without acute organ dysfunction; F32.A Depression, unspecified; N18.30 Chronic kidney disease, stage 3 unspecified; I12.9 Hypertensive chronic kidney disease with stage 1 through stage 4 chronic kidney disease, or unspecified chronic kidney disease; E11.22 Type 2 diabetes mellitus with diabetic chronic kidney disease; I25.10 Atherosclerotic heart disease of native coronary artery without angina pectoris; R74.01 Elevation of levels of liver transaminase levels; Z79.82 Long term (current) use of aspirin; Z79.02 Long term (current) use of antithrombotics/antiplatelets; Z79.899 Other long term (current) drug therapy
CPT/HCPCS: 36415; 71045; 80048; 80053; 80061; 81001; 82962; 83036; 83880; 84484; 85025; 85610; 85730; 93005; 93306; 99152; 99291; G0378; J1815; J2250; J2405; J2470